=== PATIENT | male | born 1945 | race Caucasian/White ===

== ENCOUNTER 2019-05-03 08:20 | Inpatient (IN) | payer MEDICARE, BC ==
[2019-05-03] VITALS (19 sets, daily range): BP systolic 98–124; BP diastolic 56–86
[~2019-05-03] VITALS: Ht 185.4 cm; Wt 93.1 kg
[2019-05-03 12:36] LABS: HEMATOCRIT 43.7 % (42.0-52.0); HEMOGLOBIN 15.1 g/dL (14.0-18.0); PLATELET 145 x1000/uL (130-400); RED BLOOD CELL COUNT 4.86 mill/uL (4.7-6.1); RED CELL DISTRIBUTION WIDTH 13.4 % (11.6-14.6)
[2019-05-03 12:44] LABS: CHLORIDE 109 mEq/L (98-107)
[2019-05-03] MEDS ORDERED: IODIXANOL 320MG/ML 100 ML BOTTLE IV ONE (12:45)
[2019-05-03] MEDS ORDERED: LIDOCAINE HCL 1% 20ML VIAL (Pyxis) INJ ONE (12:45)
[2019-05-03] MEDS ORDERED: GENTAMICIN SULF 40MG/ML 2ML VIAL ONE (12:45)
[2019-05-03] MEDS ORDERED: GENTAMICIN/NS IRRIGATION 500 ML IR ONE (12:46)
[2019-05-03] MEDS ORDERED: MIDAZOLAM HCL 2 MG/2 ML VIAL ONE ×2 (12:57→13:21)
[2019-05-03] MEDS ORDERED: FENTANYL CITRATE/PF 50MCG/ML 2ML VIAL ONE (12:57)
[2019-05-03] MEDS ORDERED: ACETAMINOPHEN 325MG TABLET PO PRN (14:15)
[2019-05-03] MEDS ORDERED: ATROPINE SULFATE 1MG/10ML SYR IV PRN (14:15)
[2019-05-03] MEDS ORDERED: CEFAZOLIN 1000MG PREMIX 50 ML IV ONE (14:56)
[2019-05-04] VITALS: BP 125/52
[2019-05-04 00:42] VITALS: BP 127/74
[2019-05-04 02:15] VITALS: BP 107/53
[2019-05-04 04:00] VITALS: BP 101/58
[2019-05-04 05:11] LABS: BASOPHILS % 0.7 % (0.0-2.0); EOSINOPHILS % 4.4 % (0.0-5.0); HEMOGLOBIN. 14.5 g/dL (14.0-18.0); LYMPHOCYTES % 26.2 % (20.0-50.0); MEAN CORPUSCULAR VOLUME 89.5 fL (80.0-94.0); MEAN PLATELET VOLUME 9.4 fl (7.4-10.4); MONOCYTES % 9.9 % (2.0-8.0); NEUTROPHILS % 58.8 % (40.0-76.0); PLATELET 135 x1000/uL (130-400); RED CELL DISTRIBUTION WIDTH 13.4 % (11.6-14.6)
[2019-05-04 05:14] LABS: CHLORIDE 110 mEq/L (98-107)
[2019-05-04 06:00] VITALS: BP 118/75
== END 2019-05-04 07:00 | disposition home or self-care (01) | DRG 245 ==
LOC: CCL 08:20 → 3WST 08:21
PROVIDERS: ADMIT Specialist; ATTEND Specialist
PROC: 0JH608Z Insertion of Defibrillator Generator into Chest Subcutaneous Tissue and Fascia, Open Approach (ICD-10-PCS; principal; 2019-05-03)
PROC: 0JPT0PZ Removal of Cardiac Rhythm Related Device from Trunk Subcutaneous Tissue and Fascia, Open Approach (ICD-10-PCS; 2019-05-03)
DX: Z45.02 Encounter for adjustment and management of automatic implantable cardiac defibrillator (principal); I10 Essential (primary) hypertension; Z95.810 Presence of automatic (implantable) cardiac defibrillator
CPT/HCPCS: 33262; 36415; 71045; 80048; 85027; 93005; C1722; J0690; J1580; J2250; J3010; J3490; J7050; Q9967